=== PATIENT | female | born 1940 | race Caucasian/White ===

== ENCOUNTER 2022-02-03 14:20 | Inpatient (IN) | payer MEDICARE, MEDICAID ==
[2022-02-03 17:55] VITALS: BMI 18.3
[2022-02-03] MEDS ORDERED: Acetaminophen 325 MG TAB PO PRN (20:52)
[2022-02-03] MEDS ORDERED: Bisacodyl 5 MG TAB PO PRN (20:52)
[2022-02-03] MEDS ORDERED: Ondansetron PF 4 MG/2 ML Vial IVP PRN (20:52)
[2022-02-03] MEDS ORDERED: Heparin 5,000 UNITS/ML VIAL SC SCH (21:00)
[2022-02-03] MEDS ORDERED: Famotidine 20 MG TAB PO SCH (21:00)
[2022-02-03] MEDS ORDERED: LEVALBUTEROL TARTRATE INH PRN (21:04)
[2022-02-03] MEDS ORDERED: hydrALAZINE 20 MG/ML VIAL SLOW IVP PRN (21:07)
[2022-02-03] MEDS ORDERED: Lorazepam 0.5 MG TAB PO PRN (21:08)
[2022-02-03] MEDS ORDERED: Nitroglycerin 0.4 MG TAB (25 Tab Bottle) SL PRN (21:13)
[2022-02-03 21:32] LABS: Bacteria/HPF None Seen HPF (None Seen); Bilirubin Negative (Negative); Blood, Urine 1+ (Negative); Clarity Clear (Clear); Glucose, Urine (Dipstick) Normal (Negative); Ketone, Urine Negative (Negative); Leukocyte 25 Leu/uL (Negative); Nitrite Negative (Negative); Protein, Urine (Dipstick) Negative (Neg-Trace); Specific Gravity, Urine 1.011 (1.002-1.036); Squamous Epithelial None Seen HPF (0-3); Urobilinogen Normal mg/dL (Less than 2); WBC/HPF 0-3 HPF (0-3); pH, Urine 7.5 (5.0-9.0)
[2022-02-03 21:35] LABS: Urine Culture Reflex Yes Yes
[2022-02-03 21:59] LABS: Troponin I Less than 0.010 ng/mL (< 0.028)
[2022-02-03] MEDS ORDERED: Ipratropium Bromide 2.5 ml Neb NEB SCH (22:00)
[2022-02-04] MEDS ORDERED: Lorazepam 0.5 MG TAB PO PRN ×3 (01:56→03:23)
[2022-02-04 05:06] LABS: #Basophils 0.1 thou/uL (0.0-0.2); #Eosinphils 0.3 thou/uL (0.0-0.7); #Lymphocytes 2.9 thou/uL (1.20-3.40); #Monocytes 0.8 thou/uL (0.11-0.59); #Neutrophils 3.8 thou/uL (1.40-6.50); %Eosinophils 4.2 % (0.0-10.0); %Lymphocytes 36.7 % (21.0-51.0); %Monocytes 9.6 % (0.0-10.0); %Neutrophils 48.6 % (42.0-75.0); Hemoglobin 13.9 g/dL (12.0-16.0); Mean Corpuscular HGB CONC 32.1 g/dL (32.0-36.0); Mean Corpuscular Hemoglobin 30.4 pg (27.0-31.0); Mean Corpuscular Volume 94.6 fL (78.0-98.0); Mean Platelet Volume 9.1 fL (7.4-10.4); Platelet Count 178 thou/uL (130-400); RBC Distribution Width 12.9 % (11.5-14.5); Red Blood Cell (RBC) Count 4.56 mill/uL (4.20-5.40); White Blood Cell (WBC) Count 7.9 thou/uL (4.8-10.8)
[2022-02-04 05:11] LABS: Hemoglobin A1c 5.6 % (4.0-6.0)
[2022-02-04 05:28] LABS: Cardiac Risk 3.5 (Less than 4.5)
[2022-02-04 05:30] LABS: Anion Gap 11 mmol/L (10-20); BUN (Urea Nitrogen) 16 mg/dL (9.8-20.1); Calc. Creatinine Clearance 48 mL/min (70-130); Calcium 8.5 mg/dL (7.8-10.44); Carbon Dioxide 25 mmol/L (23-31); Chloride 107 mmol/L (98-107); Glucose 88 mg/dL (83-110); Potassium 3.9 mmol/L (3.5-5.1); Sodium 139 mmol/L (136-145)
[2022-02-04] MEDS: Ipratropium Bromide 2.5 ml Neb NEB SCH ×3 (06:28→18:34)
[2022-02-04] MEDS ORDERED: Piperacillin/Tazobactam 3.375 GM in Sodium Chloride 0.9% 100 ML IVPB SCH ×3 (08:00→17:00)
[2022-02-04] MEDS ORDERED: Sodium Chloride 0.9% 1,000 ML IV SCH (08:00)
[2022-02-04] MEDS ORDERED: Ipratropium Bromide 2.5 ml Neb NEB PRN (08:04)
[2022-02-04] MEDS: Aspirin 81 mg Enteric Coated Tablet PO SCH (08:19)
[2022-02-04] MEDS ORDERED: Lorazepam 0.5 MG TAB PO SCH ×2 (09:00→21:00)
[2022-02-04] MEDS ORDERED: Pantoprazole 40 MG VIAL IVP SCH (09:00)
[2022-02-04] MEDS ORDERED: Meclizine HCl 25 MG TAB PO PRN (16:01)
[2022-02-05] MEDS: Ipratropium Bromide 2.5 ml Neb NEB SCH (06:53)
[2022-02-05] MEDS: Aspirin 81 mg Enteric Coated Tablet PO SCH (08:22)
[2022-02-05] MEDS ORDERED: Famotidine 20 MG TAB PO SCH (09:00)
[2022-02-05 15:17] VITALS: BP 151/71; TEMP 98.1
== END 2022-02-05 18:25 | disposition home or self-care (01) | DRG 392 ==
LOC: 2SW 14:20 → UNDOADMOB 14:20 → 2SW 17:34 → OBSVTOIN 02-04 20:30
PROVIDERS: ADMIT Internal Medicine; ATTEND Internal Medicine
DX: R10.9 Unspecified abdominal pain (principal); Q60.0 Renal agenesis, unilateral; I50.22 Chronic systolic (congestive) heart failure; I13.0 Hypertensive heart and chronic kidney disease with heart failure and stage 1 through stage 4 chronic kidney disease, or unspecified chronic kidney disease; R07.2 Precordial pain; J44.9 Chronic obstructive pulmonary disease, unspecified; I48.0 Paroxysmal atrial fibrillation; F03.90 Unspecified dementia, unspecified severity, without behavioral disturbance, psychotic disturbance, mood disturbance, and anxiety; N20.0 Calculus of kidney; N28.1 Cyst of kidney, acquired; K57.30 Diverticulosis of large intestine without perforation or abscess without bleeding; Z53.29 Procedure and treatment not carried out because of patient's decision for other reasons; R68.81 Early satiety; R13.10 Dysphagia, unspecified; I08.2 Rheumatic disorders of both aortic and tricuspid valves; I37.1 Nonrheumatic pulmonary valve insufficiency; F41.9 Anxiety disorder, unspecified; N18.2 Chronic kidney disease, stage 2 (mild); E78.5 Hyperlipidemia, unspecified; Z79.899 Other long term (current) drug therapy; Z86.16 Personal history of COVID-19; Z79.82 Long term (current) use of aspirin; Z88.8 Allergy status to other drugs, medicaments and biological substances; Z88.1 Allergy status to other antibiotic agents; Z87.891 Personal history of nicotine dependence; Z82.49 Family history of ischemic heart disease and other diseases of the circulatory system
CPT/HCPCS: 36415; 78227; 80048; 80061; 81001; 83036; 85025; 87086; 93306; 94760; 96361; 96374; A9537; G0378; J1644; J2543; J3490; J7050